=== PATIENT | female | born 1955 | race African-American/Black ===

== ENCOUNTER 2022-04-18 15:07 | Observation (INO) ==
[2022-04-18] MEDS ORDERED: Iopamidol - 370 500 ML MLS IVP ONE (15:19)
[2022-04-18] MEDS ORDERED: 0.9 % Sodium Chloride 1,000 ML IVC ONE (15:19)
[2022-04-18 15:49] LABS: Hematocrit 42.5 % (35.3-44.9); Hemoglobin 13.6 g/dL (11.5-15.4); Mean Corpuscular Hemoglobin 28.4 pg (28.0-33.3); Mean Corpuscular Volume 88.7 fL (83.0-100.0); Mean Platelet Volume 9.9 fL (9.4-12.4); Platelet Count 325 K/mcL (140-400); Red Blood Count 4.79 M/mcL (3.82-4.97); Red Cell Distribution Width 13.5 % (11.5-14.5); White Blood Count 7.1 K/mcL (4.3-11.1)
[2022-04-18 15:56] LABS: INR 1.1; Prothrombin Time 12.6 Seconds (9.4-12.1)
[2022-04-18 15:59] LABS: Activated Partial Thrombo Time 35.5 Seconds (26.0-36.0)
[2022-04-18] MEDS ORDERED: Aspirin 325 MG TABLET PO ONE (15:59)
[2022-04-18 16:06] LABS: BUN/Creatinine Ratio 12 (6-26); Blood Urea Nitrogen 9 mg/dL (8-23); Calcium 9.1 mg/dL (8.6-10.3); Carbon Dioxide 28 mEq/L (23-29); Chloride 103 mEq/L (98-107); Glucose 137 mg/dL (70-105); Osmolality,Calculated 287 (280-300); Potassium 3.5 mEq/L (3.5-5.1); Sodium 138 mEq/L (136-145); eGFR For African Americans > 60 (> 60); eGFR For Non-African Americans > 60 (> 60)
[2022-04-18 16:08] LABS: Troponin I < 0.03 ng/mL (< 0.04)
[2022-04-18 16:20] LABS: Bilirubin,Urine Negative (Negative); Blood,Urine Negative (Negative); Clarity,Urine Clear (Clear); Color,Urine Colorless (Yellow); Glucose,Urine (UA) Normal (Normal); Ketones,Urine Negative (Negative); Leukocyte Esterase,Urine Negative (Negative); Nitrite,Urine Negative (Negative); PH,Urine 7.5 pH Units (5.0-8.0); Protein,Urine Negative (Neg-Trace); Specific Gravity,Urine 1.026 (1.010-1.025); Urobilinogen,Urine Normal (Normal)
[2022-04-18] MEDS ORDERED: Naloxone 0.4 MG/ML INJ IVP PRN (22:20)
[2022-04-18] MEDS ORDERED: Acetaminophen 325 MG TABLET PO PRN (22:20)
[2022-04-18] MEDS ORDERED: Ondansetron 4 MG/2 ML VIAL IVP PRN (22:20)
[2022-04-18] MEDS ORDERED: Perflutren Lipid Microsphere 1.3 ML in 0.9 % Sodium Chloride 8.7 ML IVP PRN (22:24)
[2022-04-19 05:03] LABS: Hematocrit 40.8 % (35.3-44.9); Hemoglobin 12.9 g/dL (11.5-15.4); Mean Corpuscular HGB Conc 31.6 g/dL (31.6-35.5); Mean Corpuscular Hemoglobin 28.5 pg (28.0-33.3); Mean Corpuscular Volume 90.3 fL (83.0-100.0); Mean Platelet Volume 10.2 fL (9.4-12.4); Platelet Count 333 K/mcL (140-400); Red Blood Count 4.52 M/mcL (3.82-4.97); Red Cell Distribution Width 13.6 % (11.5-14.5); White Blood Count 8.1 K/mcL (4.3-11.1)
[2022-04-19 05:11] LABS: INR 1.1; Prothrombin Time 12.7 Seconds (9.4-12.1)
[2022-04-19 05:14] LABS: Activated Partial Thrombo Time 32.8 Seconds (26.0-36.0)
[2022-04-19 05:25] LABS: BUN/Creatinine Ratio 11 (6-26); Blood Urea Nitrogen 8 mg/dL (8-23); Calcium 8.7 mg/dL (8.6-10.3); Carbon Dioxide 27 mEq/L (23-29); Chloride 107 mEq/L (98-107); Chol/HDL Ratio 3.6 (0-4.9); Cholesterol 175 mg/dL (< 200); Glucose 132 mg/dL (70-105); HDL Cholesterol 48 mg/dL (40-59); LDL Cholesterol,Calculated 109 mg/dL (< 100); Osmolality,Calculated 290 (280-300); Potassium 3.2 mEq/L (3.5-5.1); Sodium 140 mEq/L (136-145); Triglycerides 90 mg/dL (< 150); eGFR For African Americans > 60 (> 60); eGFR For Non-African Americans > 60 (> 60)
[2022-04-19 05:37] LABS: Estimated Average Glucose 128 mg/dl; Hemoglobin A1C 6.1 %
[2022-04-19] MEDS: Aspirin Enteric Coated 81 MG Tablet PO SCH (09:22)
[2022-04-20 02:59] LABS: Hematocrit 39.3 % (35.3-44.9); Hemoglobin 12.3 g/dL (11.5-15.4); Mean Corpuscular HGB Conc 31.3 g/dL (31.6-35.5); Mean Corpuscular Hemoglobin 28.5 pg (28.0-33.3); Mean Platelet Volume 10.3 fL (9.4-12.4); Platelet Count 310 K/mcL (140-400); Red Blood Count 4.32 M/mcL (3.82-4.97); Red Cell Distribution Width 13.7 % (11.5-14.5); White Blood Count 8.7 K/mcL (4.3-11.1)
[2022-04-20 03:15] LABS: BUN/Creatinine Ratio 13 (6-26); Blood Urea Nitrogen 11 mg/dL (8-23); Calcium 8.5 mg/dL (8.6-10.3); Carbon Dioxide 27 mEq/L (23-29); Chloride 105 mEq/L (98-107); Glucose 206 mg/dL (70-105); Osmolality,Calculated 295 (280-300); Potassium 3.2 mEq/L (3.5-5.1); Sodium 140 mEq/L (136-145); eGFR For African Americans > 60 (> 60); eGFR For Non-African Americans > 60 (> 60)
[2022-04-20] MEDS: Aspirin Enteric Coated 81 MG Tablet PO SCH (08:21)
[2022-04-20] MEDS ORDERED: Pfizer Covid-19 Vaccine 30MCG/0.3ML IM ONE (12:18)
[2022-04-21 07:43] VITALS: BP 155/81; PULSE 81; TEMP 98.2; O2SAT 97
[2022-04-21] MEDS: Aspirin Enteric Coated 81 MG Tablet PO SCH (08:10)
== END 2022-04-21 14:35 | disposition home or self-care (01) ==
LOC: 3BNU 15:07 → EMEROOARM 15:07 → SUATTDRO 21:44 → 3BNU 22:00
PROVIDERS: ADMIT Internal Medicine; ATTEND Nurse Practitioner